=== PATIENT | female | born 2005 | race Caucasian/White ===

== ENCOUNTER 2024-10-09 19:53 | Emergency (ER) | payer BC ==
[~2024-10-09] VITALS: Ht 165.1 cm; Wt 57.6 kg
== END 2024-10-09 21:03 | disposition home or self-care (01) ==
LOC: ED 19:53
DX: S06.0X0A Concussion without loss of consciousness, initial encounter (principal); Z88.8 Allergy status to other drugs, medicaments and biological substances; V89.2XXA Person injured in unspecified motor-vehicle accident, traffic, initial encounter; Y93.89 Activity, other specified; Y92.488 Other paved roadways as the place of occurrence of the external cause; Y99.8 Other external cause status